=== PATIENT | male | born 1975 | race Caucasian/White ===

== ENCOUNTER 2024-11-22 01:42 | Day surgery (SDC) | payer OTHER, SELFPAY ==
[2024-11-07 14:01] VITALS: BMI 27.3
--- OUTSIDE RECORDS SUMMARY | 2024-11-22 01:47 | XMS_ITS | Clinical Summary ---
Author Organization [facility] Address [address] [place] [phone] Care Team Providers Care Merchandise Pickup/Receiving Associate Name Role Phone Rj Ulloa MD Primary Care Provider Allergies No known active allergies Medications ARIPiprazole (ABILIFY) 5 mg tablet 10/26/2021 Active sertraline (ZOLOFT) 100 mg tablet 11/05/2021 Active Active Problems No known active problems Social History Tobacco Use Types Packs/Day Years Used Date Smoking Tobacco: Every Day Cigarettes Smokeless Tobacco: Never AUDIT-C Answer Date Recorded Q1: How often do you have a drink containing alc ohol? Never 12/26/2021 Average Number of Drinks Not on file 022 Q3: How often do you have si x or more drinks on one occasion? 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 Gender Identity Not on file Sexual Orientation Not on file Obstetrics History Last Filed Vital Signs Vital Sign Reading Time Taken Comments Blood Pressure 112/74 08/06/2024 9:21 AM CDT Pulse 68 08/06/2024 9:21 AM CDT Temperature 36.8 ??C (98.3 ??F) 08/06/2024 9:21 AM CD T Respiratory Rate 16 08/06/2024 9:21 AM CDT Oxygen Saturation 97% 08/06/2024 9:21 AM CDT Inhaled Oxygen Concentration - - Weight 85.7 kg (189 lb) 08/06/2024 9:21 AM CDT Height 177.8 cm (5' 10 ) 08/06/2024 9:21 AM CDT Body Mass Index 27.12 08/06/2024 9:21 AM CDT Plan of Treatment Health Maintenance Due Date Last Done Comments Colon Cancer Screening-Colonoscopy 1973 Depression Screening 1973 Hepatitis C Screening 1973 Prostate Cancer Screening-PSA 1973 Pneumococcal vaccine <65 (1 of 2 - PCV) 01/01/1980 DTaP/Tdap/Td Vaccine (1 - Tdap) 1984 Hepatitis B Screening 01/01/1992 Regular Well Visit/Exam 18-64 01/01/1992 Zoster Vaccine (1 of 2) 01/01/2024 Covid-19 Vaccine ( season) 2024 11/04/2021, 01/29/2021, 01/01/2021 Influenza Vaccine (#1) 2024 [facility] [employer] C[employer]ENTRY [facility] PPO Care Teams Merchandise Pickup/Receiving Associate Relationship Specialty Start Date End Date Rj Ulloa MD [address] [facility] [address] [place] [id number] PCP - General Family Medicine 11/20/21
--- OUTSIDE RECORDS SUMMARY | 2024-11-22 01:47 | XMS_ITS | Referral Summary ---
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
--- OUTSIDE RECORDS SUMMARY | 2024-11-22 01:47 | XMS_ITS | Patient Health Summary ---
Author Organization [facility] Address [address] [facility] [place] [address] Care Team Providers Care Application Integration Specialist Name Role Phone Jonathon Garzon MD Unavailable [phone] Note from [facility],non-owned Affiliates and Associated Physician Practices is amultiple site organization consisting of ambulatory clinics and hospital sitesin [place], [place], [place] and [place]. This disclosure is being madepursuant to the Care Everywhere program and may not contain all information available regarding this patient. Last updated 18.[facility] [employer] Allergies No known active allergies Medications Be aware that medications may not be up to date on this document. Always verify current medications with the patient. No known medications Active Problems Problem Noted Date Diagnosed Date Routine general medical exam ination at a health care facility 04/11/2013 Social History Tobacco Use Types Packs/Day Years Used Date Smoking Tobacco: Some Days Cigars Smokeless Tobacco: Never Tobacco Cessation:Ready to Q uit: No; Counseling Given: Yes Comments:1 cigar a wk Alcohol Use Standard Drinks/Week Comments Yes 4.2 (1 standard drink = 0.6 oz p ure alcohol) Sex and Gender Information Value Date Recorded Sex Assigned at Not on file Gender Identity Not on file Sexual Orientation Not on file Last Filed Vital Signs Vital Sign Reading Time Taken Comments Blood Pressure 118/74 04/11/2013 2:24 PM CDT Pulse 72 04/11/2013 2:24 PM CDT Temperature - - Respiratory Rate 12 04/11/2013 2:24 PM CDT Oxygen Saturation - - Inhaled Oxygen Concentration - - Weight 86.2 kg (190 lb) 04/11/2013 2:24 PM CDT Height 176.5 cm (5' 9.5 ) 04/11/2013 2:24 PM CDT Body Mass Index 27.66 04/11/2013 2:24 PM CDT Procedures * TSH(Performed 04/11/2013) Performed for Routine general medical examination at a health care facility * LIPID PROFILE W LDL/HDL RATIO(Performed 04/11/2013) Performed for Routine general medical examination at a health care facility * COMPREHENSIVE METABOLIC PANEL(Performed 04/11/2013) Performed for Routine general medical examination at a health care facility * CBC W AUTO DIFFERENTIAL(Performed 04/11/2013) Performed for Routine general medical examination at a health care facility * URINALYSIS MICROSCOPIC ONLY REFLEXED(Performed 04/11/2013) Performed for Routine general medical examination at a health care facility * URINALYSIS REFLEX TO MICROSCOPIC NO CULTURE(Performed 04/11/2013) Performed for Routine general medical examination at a health care facility Results * (ABNORMAL) LIPID PROFILE W LDL/HDL (PO REF LAB) (04/11/2013 2:58 PM CDT) Cholesterol 163 100 - 199 mg/dL [facility] ACCOUNT BILL Triglycerides 280(H) 0 - 149 mg/dL [facility] ACCOUNT BILL HDL Cholesterol 43 >39 mg/dL [facility] ACCOUNT [facility]ILL Comment: According to ATP-III Guidelines, HDL-C >59 mg/dL is considered a negative risk factor for CHD. VLDL Calculated 56(H) 5 - 40 mg/dL [facility] ACCOUNT BILL LDL Calculated 64 0 - 99 mg/dL [facility] ACCOUNT BILL Comment NOT NEEDED [facility] ACCOUNT BILL Comment:Ancillary determined the test is not needed LDL/HDL Ratio 1.5 0.0 - 3.6 ratio units [facility] ACCOUNT BILL Blood specimen (specimen) BLOOD SPECIMEN / Unknown 04/11/2013 2:58 PM CDT 04/11/2013 5:25 PM CDT Narrative Resulting Agency Comment [facility] [address] ??[facility] [phone] Nolan Santos III, MD LAB - CHEMISTRY OR DERABLES [facility] ACCOUNT BILL * (ABNORMAL) CBC W AUTO DIFFERENTIAL (04/11/2013 2:58 PM CDT) WBC 8.9 4.0 - 10.5 x10E3/uL [facility] ACCOUNT BILL RBC 4.72 4.14 - 5.80 x10E6/uL [facility] ACCOUNT BILL Hemoglobin 14.1 12.6 - 17.7 g/dL [facility] ACCOUNT BILL Hematocrit 42.7 37.5 - 51.0 % [facility] ACCOUNT BILL MCV 91 79 - 97 fL [facility] ACCOUNT BILL MCH 29.9 26.6 - 33.0 pg [facility] ACCOUNT BILL MCHC 33.0 31.5 - 35.7 g/dL [facility] ACCOUNT BILL RDW 13.3 12.3 - 15.4 % [facility] ACCOUNT BILL Platelet Count 230 140 - 415 x10E3/uL [facility] ACCOUNT BILL Granulocytes % 55 40 - 74 % [facility] ACCOUNT BILL Lymphocytes % 34 14 - 46 % [facility] Monocytes % 4 4 - 13 % [facility] ACCOUNT [facility]ILL Eosinophils % 6 0 - 7 % [facility] ACCOUNT BILL Basophils % 1 0 - 3 % [facility] ACCOUNT BILL Immature Cells NOT NEEDED [facility] ACCOUNT BILL Comment:Ancillary determined the test is not needed Granulocytes Absolute 4.9 1.8 - 7.8 x10E3/uL [facility] ACCOUNT BILL Lymphocytes Absolute 3.1 0.7 - 4.5 x10E3/uL [facility] ACCOUNT BILL Monocytes Absolute 0.4 0.1 - 1.0 x10E3/uL [facility] ACCOUNT BILL Eosinophils Absolute 0.5(H) 0.0 - 0.4 x10E3/uL [facility] ACCOUNT BILL Basophils Absolute 0.1 0.0 - 0.2 x10E3/uL [facility] ACCOUNT BILL Immature Granulocytes 0 0 - 2 % [facility] ACCOUNT BILL Immature Granulocytes Absolute 0.0 0.0 - 0.1 x10E3/uL [facility] ACCOUNT BILL nRBC NOT NEEDED [facility] ACCOUNT BILL Comment:Ancillary determined the test is not needed Comment Hematology NOT NEEDED [facility] ACCOUNT BILL Comment:Ancillary determined the test is not needed Blood specimen (specimen) BLOOD SPECIMEN / Unknown 04/11/2013 2:58 PM CDT 04/11/2013 5:25 PM CDT Narrative Resulting Agency Comment [facility] [address] ??[facility] [phone] Nolan Santos III, MD LAB - HEMATOLOGY O RDERABLES [facility] ACCOUNT BILL * (ABNORMAL) COMPREHENSIVE METABOLIC PANEL (04/11/2013 2:58 PM CDT) [facility] Glucose 94 65 - 99 mg/dL [facility] ACCOUNT BILL BUN 14 6 - 20 mg/dL [facility] ACCOUNT BILL Creatinine 0.73(L) 0.76 - 1.27 mg/dL [facility] ACCOUNT BILL eGFR by MDRD 117 >59 mL/min/1.7 3 [facility] ACCOUNT BILL eGFR by MDRD 135 >59 mL/min/1.7 3 [facility] ACCOUNT BILL BUN/Creatinine Ratio 19 8 - 19 [facility] ACCOUNT BILL Sodium 141 134 - 144 mmol/L [facility] ACCOUNT BILL Potassium 3.9 3.5 - 5.2 mmol/L [facility] ACCOUNT BILL Chloride 100 97 - 108 mmol/L [facility] ACCOUNT BILL CO2 23 19 - 28 mmol/L [facility] ACCOUNT BILL Comment:Please note refere nce interval change Calcium 9.5 8.7 - 10.2 mg/dL [facility] ACCOUNT BILL Protein Total 7.1 6.0 - 8.5 g/dL [facility] ACCOUNT BILL Albumin 4.7 3.5 - 5.5 g/dL [facility] ACCOUNT BILL Globulin Total 2.4 1.5 - 4.5 g/dL [facility] ACCOUNT BILL Albumin/Globulin Ratio 2.0 1.1 - 2.5 [facility] ACCOUNT BILL Bilirubin Total 0.4 0.0 - 1.2 mg/dL [facility] ACCOUNT BILL Alkaline Phosphatase 70 25 - 150 IU/L [facility] ACCOUNT BILL AST 25 0 - 40 IU/L [facility] ACCOUNT BILL ALT 29 0 - 44 IU/L [facility] ACCOUNT BILL Blood specimen (specimen) BLOOD SPECIMEN / Unknown 04/11/2013 2:58 PM CDT 04/11/2013 5:25 PM CDT Narrative Resulting Agency Comment [facility] [address] ??[facility] [phone] Nolan Santos III, MD LAB - CHEMISTRY OR DERABLES [facility] ACCOUNT BILL * TSH (04/11/2013 2:58 PM CDT) TSH 2.870 0.450 - 4.500 uIU/mL [facility] ACCOUNT BILL Blood specimen (specimen) BLOOD SPECIMEN / Unknown 04/11/2013 2:58 PM CDT 04/11/2013 5:25 PM CDT Narrative Resulting Agency Comment [facility] [address] ??[facility] [phone] Nolan Santos III, MD LAB - CHEMISTRY OR DERABLES Performing Organization Address [facility] Co de Phone Number [facility] ACCOUNT BILL * URINALYSIS MICROSCOPIC ONLY REFLEXED (PO REF LAB) (04/11/2013 2:57 PM CDT) WBC UA 0-5 0 - 5 /hpf [facility] ACCOUNT BILL RBC UA None seen 0 - 3 /hpf [facility] ACCOUNT BILL Epithelial Cells (non renal) None seen 0 - 10 /hpf [facility] ACCOUNT BILL Epithelial Cells (renal) NOT NEEDED [facility] ACCOUNT BILL Comment:Ancillary determined the test is not needed Casts ua NOT NEEDED [facility] ACCOUNT BILL Comment:Ancillary determined the test is not needed Casts UA NOT NEEDED [facility] ACCOUNT BILL Comment:Ancillary determined the test is not needed Crystals UA NOT NEEDED [facility] ACCOUNT BILL Comment:Ancillary determined the test is not needed Crystals UA NOT NEEDED [facility] ACCOUNT BILL Comment:Ancillary determined the test is not needed Mucus UA Present Not Estab. [facility] ACCOUNT BILL Bacteria UA None seen None seen/Few [facility] ACCOUNT BILL Yeast UA NOT NEEDED [facility] ACCOUNT BILL Comment:Ancillary determined the test is not needed Trichomonas UA NOT NEEDED [facility] ACCOUNT BILL Comment:Ancillary determined the test is not needed Comment Urine NOT NEEDED [facility] ACCOUNT BILL Comment:Ancillary determined the test is not needed 04/11/2013 2:57 PM CDT 04/11/2013 5:25 PM CDT Narrative Resulting Agency Comment [facility] [address] ??[facility] [phone] Nolan Santos III, MD LAB - URINALYSIS O RDERABLES Performing Organization Address [facility]/ZIP Co de Phone Number [facility] ACCOUNT BILL * URINALYSIS ROUTINE AUTO (04/11/2013 2:57 PM CDT) Specific [place] UA 1.020 1.005 - 1.030 [facility] ACCOUNT BILL pH UA 6.0 5.0 - 7.5 [facility] ACCOUNT BILL Color UA Yellow Yellow [facility] ACCOUNT BILL Appearance Clear Clear [facility] ACCOUNT BILL Leukocyte UA Negative Negative [facility] ACCOUNT BILL Protein UA Negative Negative/Tra ce [facility] ACCOUNT BILL Glucose UA Negative Negative [facility] ACCOUNT BILL Glucose Reflex NOT NEEDED [facility] ACCOUNT BILL Comment:Ancillary determined the test is not needed Ketone UA Negative Negative [facility] ACCOUNT BILL Occult Blood Urine Negative Negative [facility] ACCOUNT BILL Bilirubin UA Negative Negative [facility] ACCOUNT BILL Urobilinogen 0.2 0.0 - 1.9 mg/dL [facility] ACCOUNT BILL Nitrite UA Negative Negative [facility] ACCOUNT BILL Microscopic Examination Urine [facility] ACCOUNT BILL Comment:Microscopic follows if indicated. Microscopic Examination Urine See below: [facility] ACCOUNT BILL Urine specimen (specimen) URINE SPECIMEN OBTAINED BY CLEAN CATCH PROCEDURE / Unknown 04/11/2013 2:57 PM CDT 04/11/2013 5:25 PM CDT Narrative Resulting Agency Comment [facility] [address] ??[facility] [phone] Nolan Santos III, MD LAB - URINALYSIS O RDERABLES [facility] ACCOUNT BILL Care Teams Application Integration Specialist Relationship Specialty [place] [address] [place] [id number] Urology 04/11/13
--- OUTSIDE RECORDS SUMMARY | 2024-11-22 01:47 | XMS_ITS | Clinical Summary ---
Author Organization [facility] Address [address] [facility] [place] [address] Care Team Providers Care Data Center Manager Name Role Phone Jonathon Garzon MD Unavailable [phone] Source Comments [facility]non-owned Affiliates and Associated Physician Practices is amultiple site organization consisting of ambulatory clinics and hospital sitesin [place], [place], [place] and [place]. This disclosure is being madepursuant to the Care Everywhere program and may not contain all information available regarding this patient. Last updated 18.[facility]. Allergies No known active allergies Medications Be aware that medications may not be up to date on this document. Always verify current medications with the patient. No known medications Active Problems Problem Noted Date Diagnosed Date Routine general medical exam ination at a health care facility 04/11/2013 Family History Medical History Relation Name Comments Cancer - Breast Mother Relation Name Status Comments Mother Social History Tobacco Use Types Packs/Day Years [...] Mass Index 27.66 04/11/2013 2:24 PM CDT Plan of Treatment Health Maintenance Due Date Last Done Comments COLOGUARD (AGES 45-75) - COL ON CA SCREENING 1973 COLON MONITORING 1973 COLONOSCOPY - COLON CA SCREENING 1973 CT COLONOGRAPHY - COLON CA SCREENING 1973 Colorectal Cancer Screening 1973 FIT - COLON CA SCREENING 1973 FLEX SIG - COLON CA SCREENING 1973 HIV SCREENING 1988 HEPATITIS C SCREENING 12/27/1991 DTAP/TDAP/TD VACCINES (1 - Tdap) 1992 HEPATITIS B VACCINE (1 of 3 - 19+ 3-dose series) 1992 PNEUMOCOCCAL VACCINE 50+ (1 of 2 - PCV) 1992 PNEUMOCOCCAL VACCINE (1 of 2 - PCV) 1992 LIPID TESTING 04/11/2018 04/11/2013 ZOSTER VACCINE (1 of 2) 01/01/2024 COVID-19 VACCINE (1 - 2023-2 5 season) 2024 INFLUENZA VACCINE (#1) 2024 DEPRESSION SCREENING 10/18/2024 HIB VACCINE Aged Out No longer eligi ble based on patient's age to complete this topic HPV VACCINE Aged Out No longer eligi ble based on patient's age to complete this topic MENINGOCOCCAL (Group B) VACCINE Aged Out No longer eligible based on patient's age to complete this topic MENINGOCOCCAL VACCINE Aged Out No chi frank eligible based on patient's age to complete this topic Procedures Procedure Name Priority Date/Time Associated Diagnosis Comments LIPID PROFILE W LDL/HDL RATIO Routine 04/11/2013 2:58 PM CDT Routine general medical examination at a health care facility from Last 3 Months or Most Recently Relevant to Health Maintenance Results * (ABNORMAL) LIPID PROFILE W LDL/HDL [...] PM CDT Narrative Resulting Agency Comment [facility] [place] [address] [facility] ??[facility] [phone] Nolan Santos III, MD LAB - CHEMISTRY OR DERABLES [facility] ACCOUNT BILL from Last 3 Months or Most Recently Relevant to Health Maintenance Care Teams Data Center Manager Relationship Specialty [place] [address] [facility] [place] [phone] Urology 04/11/13
--- OUTSIDE RECORDS SUMMARY | 2024-11-22 01:47 | XMS_ITS | Clinical Summary ---
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 Gender Identity Not on file Sexual Orientation Not on file Plan of Treatment Health Maintenance Due Date Last Done Comments DTAP/TDAP/TD VACCINES (1 - Tdap) 1992 HEPATITIS B VACCINES (1 of 3 - 19+ 3-dose series) 1992 COLORECTAL SCREENING 2018 Colorectal Cancer Screening 2018 FIT-DNA Q 3 years 2018 FIT/FOBT Q 1 year 2018 Flex Sig/CT Colonography Q 5 years 2018 ZOSTER VACCINE (1 of 2) 01/01/2024 INFLUENZA VACCINE (#1) 2024 PNEUMOCOCCAL VACCINE 0-64 YEARS Aged Out No longer eligible based on patient's age to complete this topic Care Teams Homemaker Companion Relationship Specialty [place] [address] [phone] PCP - General 12/15/12
--- OUTSIDE RECORDS SUMMARY | 2024-11-22 01:47 | XMS_ITS | Referral Summary ---
Author Organization [facility] Address [address] [facility] [place] [address] Care Team Providers Care Lead Java Programmer Name Role Phone Jonathon Garzon MD Unavailable [phone] Source Comments [facility],non-owned Affiliates and Associated Physician Practices is amultiple site organization consisting of ambulatory clinics and hospital sitesin [place], [place], [place] and [place]. This disclosure is being madepursuant to the Care Everywhere program and may not contain all information available regarding this patient. Last updated 18.[facility] [employer] [facility] Allergies No known active allergies Medications Be [...] 04/11/2013 2:24 PM CDT Plan of Treatment Not on file Procedures Procedure Name Priority Date/Time Associated Diagnosis [...] PM CDT Narrative Resulting Agency Comment [facility] [address] ??[facility] [phone] Nolan Santos III, MD LAB - CHEMISTRY OR DERABLES [facility] ACCOUNT BILL from Last 3 Months or Most Recently Relevant to Health Maintenance Care Teams Lead Java Programmer Relationship Specialty [place] [address] [facility] [address] [place], [place] [phone] Urology 04/11/13
[2024-11-22 10:39] VITALS: BP 112/65; PULSE 64; RESP 20; TEMP 36.3; O2SAT 100
[2024-11-22] MEDS: LACTATED RINGERS 1,000 ML 150 ML IV CONT (10:52)
--- NOTE | 2024-11-22 10:55 | P.PNAN_ITS ---
Anes - Initial Pre Proc Eval Procedure: Operation Date: 11/22/24 11:30 Proposed Procedures p Screening Colonoscopy - Aiden Lofton MD Date/Time: 11/22/24 10:55 Surgeon: Aiden Lofton MD Pre Op Diagnosis: Screening colon/rectum Patient Data Age: 48 Gender: M Height: 1.75 m Weight: 83.9 kg Last Vital Signs Temp 36.3 C L 11/22/24 10:39 Pulse 64 11/22/24 10:39 Resp 20 11/22/24 10:39 BP 112/65 11/22/24 10:39 Pulse Ox 100 11/22/24 10:39 O2 Del Method Room Air 11/22/24 10:39 Allergies Allergy/AdvReac Type Severity Reaction Status Date / Time No Known Allergies Allergy Verified 11/22/24 10:38 Home Medications ?Medication ?Instructions ?Recorded ?Confirmed ?Type aripiprazole 5 mg tablet 5 mg PO DAILY 11/18/21 11/22/24 History sertraline 100 mg tablet 100 mg PO DAILY 11/18/21 11/22/24 History Patient hx anesthesia problems: none Family hx anesthesia problems: none Results Review: All pre-operative results and documents have been reviewed as part of the pre- operative evaluation. [facility] Past Medical History Medical History Smoking Family History Family History Mother Family history of malignant neoplasm of breast in first degree relative Social History Social History Smoking status: Current every day smoker Tobacco type: cigarettes and cigars Alcohol intake: current Drinks per week: 4 Substance use: never Substance use type: does not use Living arrangements: with family Spiritual care concerns: No Anes - Eval Final PreProcedure Day of Procedure 11/22/24 10:55 Patient weight: overweight Heart: regular rate and rhythm Lungs: decreased breath sounds Airway: Mallampati scale class II Neurological: alert and oriented Last oral intake: >/= 8 hours ASA classification: III Emergent: no Anesthetic plan: proceed Anesthesia type and monitoring: general GIVS and standard monitoring Results Review: All pre-operative results and documents have been reviewed as part of the pre- operative evaluation. Informed Consent: The patient's anesthetic plan and its attendant risks and benefits were discussed with the patient/family/POA. Questions were solicited and answers provided to the satisfaction of the patient/family/POA.
--- NOTE | 2024-11-22 11:14 | PM.IMHP ---
H&P: HPI History of Present Illness Date/Time: 11/22/24 11:14 Chief Complaint: Screening colonoscopy Narrative: This is the patient's first colonoscopy. There are no GI symptoms and there is no family history of colorectal cancer. Review of Systems Review of Systems: All systems reviewed & are unremarkable except as noted in HPI and below PMFSH Past Medical History Medical History Smoking Family History Family History Mother Family history of malignant neoplasm of breast in first degree relative Social History Social History Smoking status: Current every day smoker Tobacco type: cigarettes and cigars Alcohol intake: current Drinks per week: 4 Substance use: never Substance use type: does not use Living arrangements: with family Spiritual care concerns: No Meds Home Medications and Allergies Home Medications ?Medication ?Instructions ?Recorded ?Confirmed ?Type aripiprazole 5 mg tablet 5 mg PO DAILY 11/18/21 11/22/24 History sertraline 100 mg tablet 100 mg PO DAILY 11/18/21 11/22/24 History Allergies Allergy/AdvReac Type Severity Reaction Status Date / Time No Known Allergies Allergy Verified 11/22/24 10:38 Vital Signs Vital Signs - 24 hr 11/22/24 10:39 Temperature 97.4 F L Pulse Rate 64 Respiratory Rate 20 Blood Pressure 112/65 Pulse Oximetry 100 Oxygen Delivery Room Air Exam Const: General: cooperative and healthy appearing Resp: Effort & Inspection: normal respiratory effort and able to speak in complete sentences Auscultation: clear to auscultation bilaterally Cardio: Rate: regular rate Rhythm: regular rhythm GI: Inspection: normal to inspection GI Palp: No No hepatosplenomegaly present Auscultation: normal bowel sounds Rectal Exam: deferred Skin: General skin exam: normal color Psych: Appearance: grossly normal Mental Status: mental status grossly normal Assessment and Plan Assessment and plan (1) Encounter for screening colonoscopy: Code(s): Z12.11 - Encounter for screening for malignant neoplasm of colon Status: Acute Assessment and Plan: The patient is deemed a good candidate for the procedure. Consent signed. Will proceed.
[2024-11-22 11:38] VITALS: BP 97/61; PULSE 67; RESP 16; O2SAT 97
[2024-11-22 11:48] VITALS: BP 106/67; PULSE 70; RESP 13; O2SAT 99
[2024-11-22 11:58] VITALS: BP 105/71; PULSE 63; RESP 19; O2SAT 100
== END 2024-11-22 12:24 | disposition home or self-care (01) ==
PROVIDERS: PCP Family Medicine; Referring Provider Family Medicine; Visit Provider Internal Medicine Gastroenterology
PROC: 0DJD8ZZ Inspection of Lower Intestinal Tract, Via Natural or Artificial Opening Endoscopic (ICD-10-PCS; CPT 45378; principal; 2024-11-22 11:30)
DX: Z12.11 Encounter for screening for malignant neoplasm of colon (principal); F17.210 Nicotine dependence, cigarettes, uncomplicated; Z80.3 Family history of malignant neoplasm of breast
CPT/HCPCS: 45378; J2003; J2704; J7120